=== PATIENT | male | born 1950 | race Caucasian/White ===

== ENCOUNTER 2021-03-31 10:13 | Observation (INO) ==
--- NOTE | 2021-03-10 14:18 | History & Physical Report ---
Date of Service March 10, 2021 date of surgery: 03/31/21 Procedure: Left Total Knee Arthroplasty Assessment & Plan (1) Arthritis of knee, left: Presents with chronic persistent left knee pain, has had a few courses of injections, most recently visco, underwent Euflexxa injection in the fall which lasted about 3 months. his x-rays show advanced DJD tricompartmental, bone on bone changes with osteophyte formation, joint space narrowing and subchondral sclerosis. we discussed options, he would like to proceed with a left total knee arthroplasty lovell and nephew non-block, he had his right TKA done in 2018 and has recovered well. The risks and benefits have been discussed including, but not limited to, risk of infection, nerve injury, stiffness, loss of motion, failure to improve, etc. Reasonable outcomes and options of treatment were discussed. An explanation of appropriate alternatives to the procedure that may be advantageous were discussed and their risks and benefits, as well as the risks and benefits of not proceeding with treatment. I offered to answer any additional inquiries concerning the treatment involved. All the patient's questions were answered. The patient is agreeable, understanding of the treatment plan and alternatives, and wishes to proceed with the treatment plan. History of Present Illness Chief Complaint: left knee pain Primary Care Provider: Gardenia Rodriguez Som farley is a 71 year old male that presents for pre op eval prior to a left total knee replacement at [facility]. He presents with chronic persistent left knee pain, has had a few courses of injections, most recently visco, underwent Euflexxa injection in the fall which lasted about 3 months. his x-rays show advanced DJD tricompartmental, bone on bone changes with osteophyte formation, joint space narrowing and subchondral sclerosis. we discussed options, he would like to proceed with a left total knee arthroplasty lovell and nephew non-block, he had his right TKA done in 2018 and has recovered well. he currently rates his pain as 6/10. has tried oral NSAIDs and Tylenol. Allergies Allergy/AdvReac Type Severity Reaction Status Date / Time Penicillins Allergy Intermediate HIVES Verified 03/03/21 15:09 Sulfa (Sulfonamide Allergy Intermediate "SULFA Verified 03/03/21 15:09 Antibiotics) DRUGS": HIVES adhesive Allergy surgical Verified 03/03/21 15:49 tape -- itching midazolam [From Versed] AdvReac confusion, Verified 03/03/21 15:49 memory loss x 2 wks, unable to follow direction Home Medications Medication Instructions Recorded Confirmed Type Fish Oil 1 cap PO QAM 03/03/21 03/03/21 History Vitamin D3 1 dose PO QAM 03/03/21 03/03/21 History aspirin [Aspir-81] 81 mg PO QAM 03/03/21 03/03/21 History atenolol 50 mg PO BID 03/03/21 03/03/21 History citalopram 20 mg PO QAM 03/03/21 03/03/21 History clopidogrel [Plavix] 75 mg PO Q OTHER DAY 03/03/21 03/03/21 History folic acid 1 dose PO QAM 03/03/21 03/03/21 History melatonin 1 dose PO HS 03/03/21 03/03/21 History multivitamin 1 tab PO QAM 03/03/21 03/03/21 History rosuvastatin [Crestor] 10 mg PO QPM 03/03/21 03/03/21 History tamsulosin 0.4 mg PO HS 03/03/21 03/03/21 History trazodone 100 mg PO HS 03/03/21 03/03/21 History Past Med/Surg History Medical History Anxiety DDD (degenerative disc disease) Depression History of anesthesia reaction Versed "scrambles his brain" per ; reports inability to follow instruction and memory loss x 2 weeks History of brachytherapy 2018 History of prostate cancer dx 2018; h/o brachytherapy History of TIA (transient ischemic attack) 2019 HLD (hyperlipidemia) HTN (hypertension) Internal carotid artery stent present Left (placed d/t scar tissue from L CEA) Osteoarthritis Pulmonary nodule dr. [facility] is monitoring Spinal stenosis Surgical History History of bronchoscopy 2018 with biopsy -- benign pulm nodule History of carotid endarterectomy Left 2019 History of carpal tunnel surgery of left wrist History of carpal tunnel surgery of right wrist History of colonoscopy History of hernia repair as a child History of lumbar fusion 2016 History of prostate biopsy History of right knee joint replacement 2016 History of right knee surgery 1981 History of surgery TCAR 08/2020 Family History Other No family history of adverse response to anesthesia Social History Smoking Status: Former smoker Smoking End Date: from age [age]; Second Hand Exposure: No; Do You Dip or Chew Tobacco: No; Tobacco Cessation Education Requested by Patient: No Hx Alcohol Use: Yes Alcohol type: beer, wine and hard liquor Hx Substance Use: No Preferred Language: Hebrew Communication Ability: Effective Map Colorer Required: No Beliefs That Will Affect Care: None Current Living Situation: Spouse Feels Safe at Home: Yes Assistive Devices: Glasses Review of Systems Review of Systems: All systems reviewed & are unremarkable except as noted in HPI & below Constitutional: no fever, no chills and no sweats Respiratory: no cough and no dyspnea Cardiovascular: no chest pain, no dyspnea and no orthopnea Gastrointestinal: no abdominal pain, no nausea and no vomiting Musculoskeletal: as per Subjective / HPI Physical Exam Physical Exam: HT: 5ft 8in WT: 108.86kg Constitutional: WD/WN, vitals as above no acute distress Respiratory: normal respiratory effort, lungs clear to auscultation no respiratory distress, no labored breathing and does not use accessory muscles Cardiovascular: RRR, no murmur, no edema Gastrointestinal (Abdomen): normal bowel sounds, soft, nontender, no hepatosplenomegaly Musculoskeletal: Knee: + knee abnormal to inspection (LEFT KNEE), + effusion (+1 effusion), + limited ROM of knee (ROM 0/3/110), + knee ROM with crepitation, + joint line tenderness (medial joint line) and + Boubacar's sign positive; no deformity, no skin erythema, no ecchymosis, no valgus laxity, no varus laxity, anterior drawer test negative, Tracy's sign negative and pivot shift test negative Results & Data Results & Data ([facility]) Diagnostic Findings Left Knee X-ray: left knee series confirm advanced degenerative changes to the left knee, greatest medial compartments and patellofemoral joint, showing joint space narrowing, osteophyte formation and subchondral sclerosis. no acute bony pathology noted.
--- NOTE | 2021-03-11 08:52 | PAT Medication Instructions ---
Medication Instructions Date of Service March 11, 2021 Home Medications Fish Oil 1 cap PO QAM Vitamin D3 1 dose PO QAM aspirin [Aspir-81] 81 mg PO QAM atenolol 50 mg PO BID citalopram 20 mg PO QAM clopidogrel [Plavix] 75 mg PO Q OTHER DAY folic acid 1 dose PO QAM melatonin 1 dose PO HS multivitamin 1 tab PO QAM rosuvastatin [Crestor] 10 mg PO QPM tamsulosin 0.4 mg PO HS trazodone 100 mg PO HS ASK your prescriber and surgeon clopidogrel [Plavix] 75 mg PO Q OTHER DAY (in order for spinal anesthesia, Plavix needs to be stopped 7 days before surgery. Please check if okay with doctor that prescribes this to you) STOP taking 2 weeks before surgery (or as soon as possible if surgery is within 2 weeks) Fish Oil 1 cap PO QAM DO NOT take the morning of surgery Vitamin D3 1 dose PO QAM folic acid 1 dose PO QAM multivitamin 1 tab PO QAM Take morning of surgery With a small sip of water, OTHERWISE NOTHING TO EAT OR DRINK AFTER MIDNIGHT: atenolol 50 mg PO BID citalopram 20 mg PO QAM Take evening before surgery atenolol 50 mg PO BID melatonin 1 dose PO HS rosuvastatin [Crestor] 10 mg PO QPM tamsulosin 0.4 mg PO HS trazodone 100 mg PO HS Other Notes If you have any questions please call us at [phone] or [phone] or [phone] or [phone]
--- NOTE | 2021-03-16 11:08 | Anesthesiology Consultation ---
Date of Service March 16, 2021 Assessment & Plan (1) Encounter for pre-operative examination: - COVID screening: Per assessment on 03/16: Travel screen- Returned from travel to [place] 03/11 (plane to [place], drove back)- Patient owns home in [place] (stayed at hotel on way back). Patient vaccinated. Wears PPE/avoids large crowds. Return from travel will be > 5 days prior to preop COVID testing. No further travel planned. No known COVID-19 positive contacts or current COVID-19 related symptoms. Surgeon arranging preop COVID testing. Awaiting results. - Spinal concerns: Patient reports that he had significant leg weakness x 1 year following spinal block (for LLE ligament repair) done remotely. Patient requesting general anesthesia if possible. Ultimate anesthetic choice to be made AM DOS. Chart Review Chart Review: Acceptable Risk for Surgery and Patient seen in Pre Admission Testing Teaching & Discussion Pre-Anesthesia Teaching/Discussion Notes: Instructed NPO after midnight before surgery,except medications with 15 cc of water. Medication instructions provided according to the PAT guidelines. History Surgery Operation Date: 03/31/21 07:15 Proposed Procedures p Left Total Knee Arthroplasty - Ton Huynh DO Height/Weight Height: 5 ft 8 in Weight: 110.3 kg Allergies Allergy/AdvReac Type Severity Reaction Status Date / Time Penicillins Allergy Intermediate Hives Verified 03/12/21 11:55 Sulfa (Sulfonamide Allergy Intermediate Hives Verified 03/12/21 11:55 Antibiotics) adhesive Allergy Surgical Verified 03/12/21 11:55 tape- itching midazolam [From Versed] AdvReac Confusion, Verified 03/12/21 11:55 memory loss(x2 weeks), unable to follow direction Medications Home Medications Medication Instructions Recorded Confirmed Last Taken Fish Oil 1 cap PO QAM 03/03/21 03/03/21 Unknown Vitamin D3 1 dose PO QAM 03/03/21 03/03/21 Unknown aspirin [Aspir-81] 81 mg PO QAM 03/03/21 03/03/21 Unknown atenolol 50 mg PO BID 03/03/21 03/03/21 Unknown citalopram 20 mg PO QAM 03/03/21 03/03/21 Unknown clopidogrel [Plavix] 75 mg PO Q OTHER DAY 03/03/21 03/03/21 Unknown folic acid 1 dose PO QAM 03/03/21 03/03/21 Unknown melatonin 1 dose PO HS 03/03/21 03/03/21 Unknown multivitamin 1 tab PO QAM 03/03/21 03/03/21 Unknown rosuvastatin [Crestor] 10 mg PO QPM 03/03/21 03/03/21 Unknown tamsulosin 0.4 mg PO HS 03/03/21 03/03/21 Unknown trazodone 100 mg PO HS 03/03/21 03/03/21 Unknown Past Medical History Medical History Anxiety Carotid artery disease s/p left CEA (2019) and subsequent stent/Transcarotid Artery Revascularization- on plavix DDD (degenerative disc disease) Depression History of prostate cancer dx 2018; h/o brachytherapy History of TIA (transient ischemic attack) 2019 HLD (hyperlipidemia) HTN (hypertension) Osteoarthritis Pulmonary nodule Under surveillance (Dr. Moon, [facility]) Spinal stenosis Exercise / Class Metabolic Activity II 4-5 Yardwork/Stairs/Walk up hill (one FS (no CP, no SOB)) Past Family History Family History Other No family history of adverse response to anesthesia Past Surgical History Surgical History History of brachytherapy 2018 History of bronchoscopy + biopsy (benign pulmonary nodule)- 2018 History of carotid endarterectomy Left 2019 History of carpal tunnel surgery of left wrist History of carpal tunnel surgery of right wrist History of colonoscopy History of hernia repair As child History of lumbar fusion 2016 History of prostate biopsy History of right knee joint replacement 2016 History of right knee surgery 1981 History of surgery TCAR (Transcarotid Artery Revascularization) 08/2020 History of surgery LLE ligament repair Internal carotid artery stent present Left (placed d/t scar tissue from L CEA) Past Anesthesia History No Family Hx of Anesthesia Complications and Other ( Versed "scrambles his brain" per ; reports inability to follow instruction and memory loss x 2 weeks) Patient reports that he had significant leg weakness x 1 year following spinal block (for LLE ligament repair) done remotely. History of PONV No Hx of PONV and No Hx of Motion Sickness Social History Smoking Status: Former smoker Do You Dip or Chew Tobacco: No Smoking End Date: From age [age] Hx Alcohol Use: Yes Alcohol type: beer, wine and hard liquor alcohol intake frequency: 3 or more drinks per day (3 beers a day (at the most)) Hx Substance Use: No substance use type: does not use Review of Systems Patient denies chest pain, shortness of breath, dyspnea on exertion, fever, chills, cough, wheezing, palpitations. Physical Exam Vital Signs VITALS BP 128/75 P 61 TEMP SP02 96%RA RESP 16 PHYSICAL Full cervical extension range of motion. Full TMJ range of motion. TMD 3.5 finger breaths Mallampati Score 2 Dentition: intact, + crowns Lungs: clear throughout to auscultation Cardiac: regular rate and rhythm, no murmurs noted Spine: normal Carotid arteries: negative bruit Extremities: no edema Lab Results Anesthesia Preop Results Results Anesthesia Widget: WBC 6.70 K/uL (4.8-10.8) 03/16/21 Hgb 14.7 g/dL (14.0-18.0) 03/16/21 Hct 41.8 % (42-52) L 03/16/21 Plt 176 K/uL (130-400) 03/16/21 Na 138 mmol/L (136-145) 03/16/21 K 4.2 mmol/L (3.5-5.1) 03/16/21 Cl 107 mmol/L (98-107) 03/16/21 CO2 25 mmol/L (21-32) 03/16/21 BUN 15 mg/dl (7-18) 03/16/21 Creat 0.66 mg/dl (0.6-1.4) 03/16/21 Glucose Level 136 mg/dl (70-99) H 03/16/21 PT 10.0 Seconds (9.0-12.0) 03/16/21 PTT 25.0 Seconds (21.0-31.0) 03/16/21 INR 1.0 (0.9-1.1) 03/16/21 HA1c 5.6 % (4.5-5.6) 03/16/21 Urine Color Dark Yellow 03/16/21 Urine Appearance Clear (Clear) 03/16/21 Urine pH 6.0 (4.5-7.5) 03/16/21 Urine Specific [place] 1.023 (1.000-1.030) 03/16/21 Urine Protein Negative (Negative) 03/16/21 Urine Glucose (UA) Negative (Negative) 03/16/21 Urine Ketones Negative (Negative) 03/16/21 Urine Blood Negative (Negative) 03/16/21 Urine Nitrite Negative (Negative) 03/16/21 Urine Bilirubin Negative (Negative) 03/16/21 Urine Urobilinogen Negative (Negative) 03/16/21 Urine Leukocyte Esterase Negative (Negative) 03/16/21 Blood Type A Positive 03/16/21 Antibody Screen NEGATIVE 03/16/21 Testing Electrocardiogram Date: 03/16/21 Normal sinus rhythm at 60 bpm. Normal ECG. T wave inversion less evident in i nferior leads when compared to 03/08/2016 per certified hyperbaric technician review-per visual review isolated nonspecific versus subtle T wave inversion isolated in lead III. Chest X-Ray Date: 07/27/20 Stable right upper lobe pulmonary nodule. Otherwise no acute disease seen at this time.
[~2021-03-31 10:13] MED LIST: ACETAMINOPHEN 500 MG TAB PO SCH; BUPIVACAINE 0.25% 30 ML VIAL ONE; BUPIVACAINE 0.5 % 5 MG/1 ML PF 10ML VIAL ONE; DEXAMETHASONE SOD INJ 4 MG/ML VIAL ONE; EPINEPHrine INJ 1 MG/ML AMP ONE; FAMOTIDINE 20 MG TAB PO SCH; GABAPENTIN 300 MG CAP PO SCH; LR 500ML BOLUS, THEN 15ML/HR IV SCH; METOCLOPRAMIDE HCL 10 MG TABLET PO SCH; ROPIVACAINE 0.5% HCL/PF 150 MG, BUPIVACAINE 0.75% MPF 20 ML, EPINEPHrine 30MG/30ML (OR ... INSTIL SCH; TRANEXAMIC ACID 1,000 MG **IV Intra-op IV SCH; TRANEXAMIC ACID 1,000 MG **IV Pre-op IV SCH; VANCOMYCIN HCL 1,750 MG in SODIUM CHLORIDE 0.9% 500 ML IV SCH; oxyCODONE HCL 10 MG TABCR (OxyCONTIN) PO SCH
--- NOTE | 2021-03-31 10:58 | History & Physical Bridge Note ---
Date of Service March 31, 2021 History & Physical Bridge Note I have examined the patient, reviewed the History & Physical and in the interval since the performance of the History & Physical I have noted the following changes of clinical significance: no changes noted
[2021-03-31] MEDS ORDERED: ePHEDrine sulfate 50 MG/ML SYR ONE (11:09)
[2021-03-31] MEDS ORDERED: PHENYLEPHRINE 100MCG/ML 5ML SYR ONE (11:09)
[2021-03-31] MEDS ORDERED: PROPOFOL IV EMULSION 10 MG/ML 20 ML VIAL IV ONE (11:09)
[2021-03-31] MEDS ORDERED: LIDOCAINE 2% 2 ML VIAL/AMP(20MG/ML) INFIL ONE (11:09)
[2021-03-31] MEDS ORDERED: fentaNYL citrate 100 MCG/2 ML VIAL ONE ×2 (11:10→13:57)
[2021-03-31] MEDS ORDERED: ORTHO JOINT ANESTHETIC ONE (12:43)
[2021-03-31] MEDS ORDERED: ONDANSETRON INJ 2 MG/ML 2 ML VIAL ONE (13:39)
[2021-03-31] MEDS ORDERED: DEXAMETHASONE SOD INJ 4 MG/ML VIAL ONE (13:43)
[2021-03-31] MEDS ORDERED: GLYCOPYRROLATE 0.2 MG/ML VIAL ONE (13:43)
--- NOTE | 2021-03-31 14:28 | Operative Report ---
Post Operative Report Pre & Post Diagnosis Operation Date: 03/31/21 12:15 Pre-Op Diagnosis: Osteoarthritis Left Knee Post-Op Diagnosis: Osteoarthritis Left Knee I identified the patient and participated in the time-out.: Yes Procedure Operation Date: 03/31/21 12:15 Actual Procedures p Left Total Knee Arthroplasty(Left) utilizing [employer] journey to nonblock size 7 femur 5 tibia 9 polythirty 2 oval patella- Ton Huynh DO Surgeon Ton Huynh DO Dye Reel Operator Christian DONIS Estimated Blood Loss 5 Findings Consistent with Post-Op Diagnosis Patient presents with severe end-stage tricompartmental degenerative joint disease [id number] varus alignment 10 degree flexion contracture with eburnated bone on bone marginal osteophyte subchondral cystic changes moderate to large effusion Specimens Bone and cartilage Drains Medium bore Hemovac Anesthesia Type MAC Spinal Regional Complications none Disposition Accompanied Patient To Recovery: No Disposition: Recovery Room Indications Patient presents with severe end-stage DJD left knee no response to conservative management patient presents for left total knee arthroplasty after failing conservative management clinic physical therapy anti-inflammatories relative rest activity modifications corticosteroid injections viscosupplementation Description of Procedure After proper prepping and draping of the left lower extremity anterior midline incision was made over the region of the extensor extensor mechanism after met iculous hemostasis was obtained and maintained in subcutaneous tissues a medial parapatellar incision was made The patella was subluxed lateralward the medial lateral gutter were cleaned from any hypertrophic synovitis and scar tissue of the distal femoral block was placed and the distal femoral osteotomy cut was made subsequently the chamfers anterior and posterior osteotomy cuts were made utilizing the 4-in-1 block the tibia was subsequently subluxed anteriorward medial and ateral meniscal remnants were excised in their entirety remnants of the anterior and posterior cruciate ligaments were excised in their entirety excellent exposure of the proximal tibia was obtained the tibial osteotomy guide was placed on the proximal tibial osteotomy cut was made once again the knee was irrigated with copious amounts of sterile saline solution the patella was subsequently everted lateralward thickened scar tissue around the patella was removed the patella was subsequently cut utilizing a freehand technique and was drilled prepared for final preparation and placement of patella socially flexion-extension gaps were checked and the equal and symmetric trials were placed to the appropriate femoral and tibial trials with poly-spacer being placed for equal flexion and extension gaps and full range of motion including extension to 0 and flexion to 140 the trial components after having been taken to recovery range of motion was subsequently removed meticulous hemostasis was obtained and maintained subsequently a knee block injection of joint cocktail including ropivacaine 0.5% 150 mg. Bupivacaine 0.5% epinephrine 1-200,030 mL's toradol 30 mg dexamethasone 4 mg ketamine 10 mg clonidine 100 micrograms normal saline solution 30 mg was infiltrated into the soft tissues of the posterior k nee medial lateral gutters and periosteal synovium special attention was paid to protect neurovascular structures at all times subsequently trial components having been removed the knee was irrigated with sterile saline solution. debris was removed the proximal tibia was subsequently prepared and was made ready for the placement of the tibial component tibial component was also cemented and tamped into position the femoral component was subsequently placed and cemented in the position the patellar component was subsequently cemented in position because hemostasis once again obtained and maintained wound having been thoroughly irrigated with debridement and debridement lavage was performed as well as a medial parapatellar incision closed with #1 Vicryl in interrupted fashion subcutaneous was closed with #2 Vicryl skin was closed with skin clips. PA-C was necessary for prepping and drapping as well as wound closure of deep fascia Sub cutaneous tissue and skin and was necessary for the case. A sterile compressive dressing was placed patient was taken to recovery in stable condition of report dictated by Lino I attest to the content of the Intraoperative Record and any orders documented therein. Any exceptions are noted below. I attest to the content of the Intraoperative Record and any orders documented therein. Any exceptions are noted below.
[2021-03-31] MEDS ORDERED: ATROPINE SULFATE 0.1 MG/ML 10ML SYR IV PRN (15:00)
[2021-03-31] MEDS ORDERED: PROMETHAZINE HCL 6.25 MG in SODIUM CHLORIDE 0.9% 50 ML IV PRN (15:00)
[2021-03-31] MEDS ORDERED: ePHEDrine sulfate 50 MG/ML AMP IV PRN (15:00)
[2021-03-31] MEDS ORDERED: fentaNYL citrate 100 MCG/2 ML VIAL IV PRN (15:00)
[2021-03-31] MEDS ORDERED: ONDANSETRON INJ 2 MG/ML 2 ML VIAL IV PRN ×2 (15:00→17:43)
--- NOTE | 2021-03-31 15:45 | XRay Report ---
XR knee RT 1 or 2V routine CLINICAL HISTORY: Surgical Post Op COMPARISON: None. DISCUSSION: There are postsurgical changes of a total left knee arthroplasty and patellar resurfacing . The femoral and tibial components appear well seated. There are overlying skin navin and surgical drains. There is gas present within the soft tissues consistent with recent surgery. IMPRESSION: Postsurgical changes of a total left knee arthroplasty. ACT 112: Negative or not required by law. Electronically signed by: Kvng Allen M.D. 03/31/2021 3:44 PM
--- NOTE | 2021-03-31 15:48 | Anesthesiology Progress Note ---
Date of Service March 31, 2021 Anesthesia Post Procedure Vital Signs Vital Signs: Temp Pulse Pulse Resp BP Pulse Ox 03/31/21 15:40 36.2 C L 63 16 139/83 94 03/31/21 15:30 64 14 154/91 H 98 03/31/21 15:20 65 14 125/86 97 03/31/21 15:13 36.7 C 73 14 152/72 H 96 03/31/21 12:05 36.6 C 55 L 20 144/73 H 96 03/31/21 10:35 36.8 C 60 18 168/85 H 96 Transfer of Care Handoff Completed per policy Notes Mental Status: alert / awake / arousable Patient Amnestic to Procedure: Yes Nausea / Vomiting: adequately controlled Pain: adequately controlled Airway Patency, RR, SpO2: stable & adequate BP & HR: stable & adequate Hydration State: stable & adequate Anesthetic Complications: no major complications apparent
[2021-03-31] MEDS ORDERED: MAGNESIUM HYDROXIDE SUSP 30 ML UDC PO PRN (17:43)
[2021-03-31] MEDS ORDERED: HYDROmorphone INJ 0.5 MG/0.5 ML SYR IV PRN (17:43)
[2021-03-31] MEDS ORDERED: VANCOMYCIN CONSULT ACTIVE PRN (17:43)
[2021-03-31] MEDS ORDERED: bisacodyL 10 MG SUPP PR PRN (17:43)
[2021-03-31] MEDS ORDERED: NALOXONE HCL 0.4 MG/1 ML VIAL/CARP IV PRN (17:43)
[2021-03-31] MEDS: SODIUM CHLORIDE 0.9% 1000ML 1,000 ML IV SCH (18:50)
[2021-03-31] MEDS: TAMSULOSIN HCL 0.4 MG CAP PO SCH (21:35)
[2021-03-31] MEDS: ASPIRIN 81 MG ECTAB PO SCH (21:35)
[2021-03-31] MEDS: ACETAMINOPHEN 500 MG TAB PO SCH (21:35)
[2021-03-31] MEDS: ROSUVASTATIN CALCIUM 10 MG TAB PO SCH (21:35)
[2021-03-31] MEDS: SENNA 8.6 MG TAB PO SCH (21:35)
[2021-03-31] MEDS: DOCUSATE SODIUM 100 MG CAP PO SCH (21:35)
[2021-03-31] MEDS: traZODone HCL 100 MG TAB PO SCH (21:35)
[2021-03-31] MEDS: ATENOLOL 50 MG TABLET PO SCH (21:36)
[2021-03-31] MEDS: FERROUS GLUCONATE 324 MG TAB PO SCH (21:36)
[2021-04-01] MEDS ORDERED: VANCOMYCIN HCL 1,750 MG in SODIUM CHLORIDE 0.9% 500 ML IV SCH
[2021-04-01] MEDS: ACETAMINOPHEN 500 MG TAB PO SCH ×3 (05:53→21:23)
[2021-04-01] MEDS: SODIUM CHLORIDE 0.9% 1000ML 1,000 ML IV SCH (05:54)
[2021-04-01 08:45] LABS: Hematocrit (blood only) 35.1 % (42-52); Hemoglobin 12.4 g/dL (14.0-18.0); Mean Corpuscular Hgb Conc 35.3 g/dL (32-36); Mean Corpuscular Volume 90.5 fL (80-100); Mean Platelet Volume 9.8 fL (7.4-10.4); Platelet Count 187 K/uL (130-400); RDW Coefficient of Variation 12.2 % (11.5-14.5); RDW Standard Deviation 40.2 fL (36.4-46.3); Red Blood Count 3.88 M/uL (4.7-6.1); White Blood Count 14.21 K/uL (4.8-10.8)
[2021-04-01] MEDS ORDERED: CLOPIDOGREL BISULFATE 75 MG TAB PO SCH (09:00)
[2021-04-01 09:11] LABS: BUN Creatinine Ratio 19.1 (10-20); Calcium 8.3 mg/dl (8.5-10.1); Creatinine Clr Calc Pharmacy 128.6 ml/min; Est GFR (Non-African American) 99.2 ml/min; Potassium 3.7 mmol/L (3.5-5.1)
[2021-04-01] MEDS: DOCUSATE SODIUM 100 MG CAP PO SCH ×2 (09:29→21:22)
[2021-04-01] MEDS: MULTIVITAMIN TAB PO SCH (09:29)
[2021-04-01] MEDS: ATENOLOL 50 MG TABLET PO SCH ×2 (09:30→21:23)
[2021-04-01] MEDS: ASPIRIN 81 MG ECTAB PO SCH (09:30)
[2021-04-01] MEDS: FERROUS GLUCONATE 324 MG TAB PO SCH ×2 (09:30→17:50)
[2021-04-01] MEDS: CITALOPRAM 20 MG TAB PO SCH (09:30)
--- NOTE | 2021-04-01 10:55 | Orthopedic Progress Note ---
Date of Service April 01, 2021 Assessment & Plan (1) Arthritis of knee, left: Plan: Postop day 1 status post left total knee arthroplasty PT/OT protocols. Weightbearing as tolerated. DVT prophylaxis-Xarelto 10 mg p.o. daily, SCDs, THEODORE carlton. Noted that patient is no longer takes Plavix. Family history of DVT and patient history of prostate cancer 1/2 years prior. Pain management as written. DC planning-plan for outpatient PT upon discharge. Continue to follow Hemovac drainage. Admission and Anticipated Discharge Date Admission Date: March 31, 2021 Subjective Postop day 1 Patient sitting up in the chair at the bedside. Having a little bit of discomfort this morning but tolerating well. Denies shortness of breath, chest pain, lightheadedness. Physical Exam Physical Exam: Dressings are intact. He has a small amount of drainage that h as seeped through the Steven wrap distally but is not soaking it. Calves are soft nontender. Neurovascular intact. Toes are mobile. Hemovac drainage was 250 mL from previous shift. Results & Data ([facility]) Vital Signs (Past 12 Hours) Vital Signs Temp Pulse Resp BP BP Pulse Ox 04/01/21 07:21 36.6 C 57 L 16 143/73 H 96 04/01/21 03:10 36.8 C 54 L 18 184/80 H 135/71 95 03/31/21 22:54 36.5 C 52 L 18 164/74 H 94 Laboratory Results 04/01/21 04/01/21 03/31/21 Range/Units 08:01 08:01 10:26 WBC 14.21 H (4.8-10.8) K/uL RBC 3.88 L (4.7-6.1) M/uL Hgb 12.4 L (14.0-18.0) g/dL Hct 35.1 L (42-52) % MCV 90.5 (80-100) fL MCH 32.0 (25-34) pg MCHC 35.3 (32-36) g/dL RDW Std Deviation 40.2 (36.4-46.3) fL RDW Coeff of Mulu 12.2 (11.5-14.5) % Plt Count 187 (130-400) K/uL MPV 9.8 (7.4-10.4) fL Sodium 140 (136-145) mmol/L Potassium 3.7 (3.5-5.1) mmol/L Chloride 110 H (98-107) mmol/L Carbon Dioxide 22 (21-32) mmol/L Anion Gap 8.0 (3-11) BUN 12 (7-18) mg/dl Creatinine 0.64 (0.6-1.4) mg/dl Est Cr Clr Drug Dosing 128.6 ml/min Est GFR ( Amer) 115.0 ml/min Est GFR (Non-Af Amer) 99.2 ml/min BUN/Creatinine Ratio 19.1 (10-20) Glucose 123 H (70-99) mg/dl Calcium 8.3 L (8.5-10.1) mg/dl COVID-19 Eval Order SARS-CoV-2, RNA, NAAT NEGATIVE (NEGATIVE) 03/31/21 Range/Units 10:26 WBC (4.8-10.8) K/uL RBC (4.7-6.1) M/uL Hgb (14.0-18.0) g/dL Hct (42-52) % MCV (80-100) fL MCH (25-34) pg MCHC (32-36) g/dL RDW Std Deviation (36.4-46.3) fL RDW Coeff of Mulu (11.5-14.5) % Plt Count (130-400) K/uL MPV (7.4-10.4) fL Sodium (136-145) mmol/L Potassium (3.5-5.1) mmol/L Chloride (98-107) mmol/L Carbon Dioxide (21-32) mmol/L Anion Gap (3-11) BUN (7-18) mg/dl Creatinine (0.6-1.4) mg/dl Est Cr Clr Drug Dosing ml/min Est GFR ( Amer) ml/min Est GFR (Non-Af Amer) ml/min BUN/Creatinine Ratio (10-20) Glucose (70-99) mg/dl Calcium (8.5-10.1) mg/dl COVID-19 Eval [facility] SARS-[facility]-2, RNA, NAAT (NEGATIVE)
[2021-04-01] MEDS: RIVAROXABAN 10 MG TABLET PO SCH (12:13)
--- NOTE | 2021-04-01 16:40 | Hospitalist Consultation ---
Date of Consultation April 01, 2021 Assessment & Plan (1) S/P TKR (total knee replacement): * POD #1 * Recommend adequate postoperative pain managementper primary, PT/OT, incentive spirometry, and DVT prophylaxis * DVT prophylaxis discussed with primary team. Would recommend Xarelto given personal history of prostate CA and family history of DVT in the past. Drug, dose, duration are at the discretion of primary team. Would encourage 14 days (2) Leukocytosis: * Presumed leukemoid reaction given recent surgery. No report of steroid given intraoperatively. Patient does not have any S/S infection (afebrile, no cough or respiratory symptoms, no GI/ symptoms) * Encouraged incentive spirometry (3) Prostate cancer: * S/p radioactive seed implantation (4) Family history of DVT: * (5) Carotid stenosis: * Follows vascular surgeon and did receive preop clearance * Per patient, no longer taking Plavix (6) Depression: * Continue Celexa and trazodone as prior to hospitalization (7) HTN (hypertension): * Resume atenolol as prior to hospitalization * At this point, patient offers no medical contraindications to proceed with discharge once he is meeting his therapy goals including step training * Will sign off on this patient from a medical standpoint; however, do not hesitate to reconsult should a problem arise * Thank you for allowing me to participate in his care Supervising Physician Co-Signing Physician Notes Patient reviewed with Jazmin DONIS. I agree with their exam findings, review of systems, assessment and plan. I personally reviewed the lab work and imaging as well. patient doing well after TKA recommend Xarelot for DVT prophylaxis pain control and d/c planning per orthopedics we will sign off for time being History of Present Illness Reason for Consultation: Medical management Requesting Physician: Dr. Huynh Attending Physician: Ton Huynh DO History of Present Illness Mr. 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 He was seen in consultation for medical management following AN elective left TKA. Today is POD #1. He had an uneventful perioperative course. Estimated blood loss was 5 cc. He had spinal for means of anesthesia. No blood pressure concerns postoperatively. Today, patient denies fevers, chills, chest pain, shortness of breath, abdominal pain, nausea or vomiting. Pain is adequately controlled with pain medication. Tolerating pain medication without ill effects. Hemovac with bloody drainage. Goal is for discharge to home. Has yet to be seen by PT/OT. No personal history of DVT/PE; however, mother had history of recurrent DVT. Patient lives in a two-story home with his . All accommodations are on the first story. Was seen by his vascular surgeon 1 month ago for preoperative clearance. Reports he had a carotid endarterectomy in 2019. Subsequently, required revascularization in 2019. Has been on Plavix which has since been discontinued approximately [address] Burroughs at [facility]. Allergies Allergy/AdvReac Type Severity Reaction Status Date / Time Penicillins Allergy Intermediate Hives Verified 03/31/21 10:48 Sulfa (Sulfonamide Allergy Intermediate Hives Verified 03/31/21 10:48 Antibiotics) adhesive Allergy Surgical Verified 03/31/21 10:48 tape- itching midazolam [From Versed] AdvReac Confusion, Verified 03/31/21 10:48 memory loss(x2 weeks), unable to follow direction Home Medications Medication Instructions Recorded Confirmed Type Fish Oil 1 cap PO QAM 03/03/21 03/31/21 History Vitamin D3 1 dose PO QAM 03/03/21 03/31/21 History aspirin 81 mg tablet,delayed 81 mg PO QAM 03/03/21 03/31/21 History release atenolol 50 mg tablet 50 mg PO BID 03/03/21 03/31/21 History citalopram 40 mg tablet 20 mg PO QAM 03/03/21 03/31/21 History clopidogrel 75 mg tablet (Plavix) 75 mg PO Q OTHER DAY 03/03/21 03/31/21 History folic acid 1 dose PO QAM 03/03/21 03/31/21 History melatonin 1 dose PO HS 03/03/21 03/31/21 History multivitamin 1 tab PO QAM 03/03/21 03/31/21 History rosuvastatin 10 mg tablet (Crestor) 10 mg PO QPM 03/03/21 03/31/21 History tamsulosin 0.4 mg capsule 0.4 mg PO HS 03/03/21 03/31/21 History trazodone 100 mg tablet 100 mg PO HS 03/03/21 03/31/21 History Patient History Medical History (Updated 04/01/21 @ 16:38 by Jazmin Radford PA-C) Anxiety Carotid artery disease s/p left CEA (2018) and subsequent stent/Transcarotid Artery Revascularization- on plavix DDD (degenerative disc disease) Depression History of prostate cancer dx 2018; h/o brachytherapy History of TIA (transient ischemic attack) 2019 HLD (hyperlipidemia) HTN (hypertension) Osteoarthritis Pulmonary nodule Under surveillance (Dr. Moon, [facility]) Spinal stenosis Surgical History History of brachytherapy 2018 History of bronchoscopy + biopsy (benign pulmonary nodule)- 2018 History of carotid endarterectomy Left 2019 History of carpal tunnel surgery of left wrist History of carpal tunnel surgery of right wrist History of colonoscopy History of hernia repair As child History of lumbar fusion 2016 History of prostate biopsy History of right knee joint replacement 2016 History of right knee surgery 1981 History of surgery TCAR (Transcarotid Artery Revascularization) 08/2020 History of surgery LLE ligament repair Internal carotid artery stent present Left (placed d/t scar tissue from L CEA) Family History Other No family history of adverse response to anesthesia Social History Smoking Status: Former smoker Smoking End Date: From age [age]; Second Hand Exposure: No; Do You Dip or Chew Tobacco: No; Tobacco Cessation Education Requested by Patient: No Hx Alcohol Use: Yes Alcohol type: beer, wine and hard liquor Hx Substance Use: No Preferred Language: Marshallese Communication Ability: Effective Knitter Helper Required: No Beliefs That Will Affect Care: None marital status: Current Living Situation: Spouse Feels Safe at Home: Yes Assistive Devices: Walker Review of Systems Review of Systems: All systems reviewed and are unremarkable except as noted in HPI and below Denies fevers, chills, headache, nasal congestion, sore throat, cough, chest pain, shortness of breath, abdominal pain, nausea, vomiting, dysuria, hematuria, frequency, skin lesions or rashes. Physical Exam Physical Exam: General: Resting comfortably in his bedside chair. NAD. Neck: No JVD. Negative hepatojugular reflex Cardiac: RRR 2/6 HAMLET Lungs: CTA without W/R/R Abdomen: Normoactive X4. Soft and nontender in all quadrants. Extremities: Steven wrap to left lower extremity. Blood noted to be seeping through into the Steven bandage (Ortho aware). Hemovac indwelling. No calf tenderness. Negative Homans' sign. Peripheral pulses are intact and symmetrical bilaterally. Capillary refill +2. Neuro: A&O X4 cranial nerves II through XII are grossly intact no focal neuro deficits Skin: No obvious skin lesions or rashes Results & Data Results & Data ([facility]) Vital Signs (Past 12 Hours) Vital Signs Temp Pulse Resp BP BP Pulse Ox 04/01/21 15:15 37.0 C 61 16 121/66 95 04/01/21 07:21 36.6 C 57 L 16 143/73 H 96 Laboratory Results 04/01/21 08:01 04/01/21 08:01 PG Care Time/CCT Total # of Minutes Spent Total Time Spent with Patient: Total time spent is greater than 50% in coordination of care (as documented) at patient's floor/unit and/or counseling patient: [place] [address] Inpt Consult Level 5 Patient Type New Medical Decision Making Moderate Complexity Diagnoses S/P TKR (total knee replacement) Z96.659 Leukocytosis D72.829 Prostate cancer C61 Family history of DVT Z82.49 Carotid stenosis I65.29 Depression F32.9 HTN (hypertension) I10 Time Spent (min) 60
[2021-04-01] MEDS: TAMSULOSIN HCL 0.4 MG CAP PO SCH (21:23)
[2021-04-01] MEDS: oxyCODONE HCL IR 5 MG TAB (IMMEDIATE RELEASE) PO PRN (21:23)
[2021-04-01] MEDS: traZODone HCL 100 MG TAB PO SCH (21:23)
[2021-04-01] MEDS: ROSUVASTATIN CALCIUM 10 MG TAB PO SCH (21:23)
[2021-04-01] MEDS: SENNA 8.6 MG TAB PO SCH (21:23)
[2021-04-02] MEDS: ACETAMINOPHEN 500 MG TAB PO SCH ×2 (05:56→13:18)
[2021-04-02 06:44] LABS: Hematocrit (blood only) 31.2 % (42-52); Hemoglobin 10.9 g/dL (14.0-18.0)
[2021-04-02] MEDS: oxyCODONE HCL IR 5 MG TAB (IMMEDIATE RELEASE) PO PRN ×2 (07:39→12:01)
[2021-04-02] MEDS: FERROUS GLUCONATE 324 MG TAB PO SCH (07:40)
--- NOTE | 2021-04-02 08:34 | Orthopedic Progress Note ---
Date of Service April 02, 2021 Assessment & Plan (1) Arthritis of knee, left: Plan: Postop day 2 status post left total knee arthroplasty DC dressings and drains today PT/OT protocols. Weightbearing as tolerated. DVT prophylaxis-Xarelto 10 mg p.o. daily, SCDs, THEODORE calrton. Noted that patient is no longer takes Plavix. Family history of DVT and patient history of prostate cancer 1/2 years prior. Pain management as written. DC planning-plan for outpatient PT upon discharge. Plan for discharge to home today. Admission and Anticipated Discharge Date Admission Date: March 31, 2021 Subjective Postop day 2 Patient sitting up in bed. Awake and alert. No complaints this morning. Pain is controlled at rest. Denies shortness of breath, chest pain, lightheadedness. He is hoping to go home today. Physical Exam Physical Exam: Original dressings are still on. He did not have much more in the way of distal drainage noted on the dressing. Calves are soft nontender. Neurovascular intact. Toes are mobile. Hemovac has minimal drainage. Results & Data ([facility]) Vital Signs (Past 12 Hours) Vital Signs Temp Pulse Resp BP Pulse Ox 04/02/21 06:51 36.6 C 54 L 16 150/60 H 95 04/01/21 22:58 36.8 C 61 18 128/65 96 04/01/21 21:15 61 176/74 H Laboratory Results 04/02/21 04/01/21 04/01/21 Range/Units 06:13 08:01 08:01 WBC 14.21 H (4.8-10.8) K/uL RBC 3.88 L (4.7-6.1) M/uL Hgb 10.9 L 12.4 L (14.0-18.0) g/dL Hct 31.2 L 35.1 L (42-52) % MCV 90.5 (80-100) fL MCH 32.0 (25-34) pg MCHC 35.3 (32-36) g/dL RDW Std Deviation 40.2 (36.4-46.3) fL RDW Coeff of Mulu 12.2 (11.5-14.5) % Plt Count 187 (130-400) K/uL MPV 9.8 (7.4-10.4) fL Sodium 140 (136-145) mmol/L Potassium 3.7 (3.5-5.1) mmol/L Chloride 110 H (98-107) mmol/L Carbon Dioxide 22 (21-32) mmol/L Anion Gap 8.0 (3-11) BUN 12 (7-18) mg/dl Creatinine 0.64 (0.6-1.4) mg/dl Est Cr Clr Drug Dosing 128.6 ml/min Est GFR ( Amer) 115.0 ml/min Est GFR (Non-Af Amer) 99.2 ml/min BUN/Creatinine Ratio 19.1 (10-20) Glucose 123 H (70-99) mg/dl Calcium 8.3 L (8.5-10.1) mg/dl
[2021-04-02] MEDS: ATENOLOL 50 MG TABLET PO SCH (08:45)
[2021-04-02] MEDS: DOCUSATE SODIUM 100 MG CAP PO SCH (08:45)
[2021-04-02] MEDS: CITALOPRAM 20 MG TAB PO SCH (08:45)
[2021-04-02] MEDS: MULTIVITAMIN TAB PO SCH (08:45)
[2021-04-02] MEDS: RIVAROXABAN 10 MG TABLET PO SCH (08:46)
--- NOTE | 2021-04-04 09:37 | Discharge Summary ---
Date of Service April 04, 2021 Admission HPI Per Admitting Provider martine is a 71 year old male that presents for pre op eval prior to a left total knee replacement at [facility]. He presents with chronic persistent left knee pain, has had a few courses of injections, most recently visco, underwent Euflexxa injection in the fall which lasted about 3 months. his x-rays show advanced DJD tricompartmental, bone on bone changes with osteophyte formation, joint space narrowing and subchondral sclerosis. we discussed options, he would like to proceed with a left total knee arthroplasty lovell and nephmynor non-block, he had his right TKA done in 2018 and has recovered well. he currently rates his pain as 6/10. has tried oral NSAIDs and Tylenol. Admission Exam Per Admitting Provider Physical Exam: HT: 5ft 8in WT: 108.86kg Constitutional: WD/WN, vitals as above no acute distress Respiratory: normal respiratory effort, lungs clear to auscultation no respiratory distress, no labored breathing and does not use accessory muscles Cardiovascular: RRR, no murmur, no edema Gastrointestinal (Abdomen): normal bowel sounds, soft, nontender, no hepatosplenomegaly Musculoskeletal: Knee: + knee abnormal to inspection (LEFT KNEE), + effusion (+1 effusion), + limited ROM of knee (ROM 0/3/110), + knee ROM with crepitation, + joint line tenderness (medial joint line) and + Boubacar's sign positive; no deformity, no skin erythema, no ecchymosis, no valgus laxity, no varus laxity, anterior drawer test negative, Tracy's sign negative and pivot shift test negative Principal Diagnosis Left Knee Osteoarthritis Discharge Data Allergies Allergy/AdvReac Type Severity Reaction Status Date / Time Penicillins Allergy Intermediate Hives Verified 03/31/21 10:48 Sulfa (Sulfonamide Allergy Intermediate Hives Verified 03/31/21 10:48 Antibiotics) adhesive Allergy Surgical Verified 03/31/21 10:48 tape- itching midazolam [From Versed] AdvReac Confusion, Verified 03/31/21 10:48 memory loss(x2 weeks), unable to follow direction Consultations 03/26/21 14:49 Consult Hospitalist Routine Procedures Performed Operation Date: 03/31/21 12:15 Actual Procedures p Left Total Knee Arthroplasty(Left) - Ton Huynh DO Ordered Studies 03/31/21 05:00 US - OR guided needle placemen Routine Hospital Course (1) Arthritis of knee, left: Date of Service April 01, 2021 Assessment & Plan (1) Arthritis of knee, left: Plan: Postop day 1 status post left total knee arthroplasty PT/OT protocols. Weightbearing as tolerated. DVT prophylaxis-Xarelto 10 mg p.o. daily, SCDs, THEODORE carlton. Noted that patient is no longer takes Plavix. Family history of DVT and patient history of prostate cancer 1/2 years prior. Pain management as written. DC planning-plan for outpatient PT upon discharge. Continue to follow Hemovac drainage. Admission and Anticipated Discharge Date Admission Date: March 31, 2021 Subjective Postop day 1 Patient sitting up in the chair at the bedside. Having a little bit of discomfort this morning but tolerating well. Denies shortness of breath, chest pain, lightheadedness. Physical Exam Physical Exam: Dressings are intact. He has a small amount of drainage that has seeped through the Steven wrap distally but is not soaking it. Calves are soft nontender. Neurovascular intact. Toes are mobile. Hemovac drainage was 250 mL from previous shift. Results & Data ([facility]) Vital Signs (Past 12 Hours) Vital Signs Temp Pulse Resp BP BP Pulse Ox 04/01/21 07:21 36.6 C 57 L 16 143/73 H 96 04/01/21 03:10 36.8 C 54 L 18 184/80 H 135/71 95 03/31/21 22:54 36.5 C 52 L 18 164/74 H 94 Laboratory Results 04/01/21 04/01/21 03/31/21 Range/Units 08:01 08:01 10:26 WBC 14.21 H (4.8-10.8) K/uL RBC 3.88 L (4.7-6.1) M/uL Hgb 12.4 L (14.0-18.0) g/dL Hct 35.1 L (42-52) % MCV 90.5 (80-100) fL MCH 32.0 (25-34) pg MCHC 35.3 (32-36) g/dL RDW Std Deviation 40.2 (36.4-46.3) fL RDW Coeff of Mulu 12.2 (11.5-14.5) % Plt Count 187 (130-400) K/uL MPV 9.8 (7.4-10.4) fL Sodium 140 (136-145) mmol/L Potassium 3.7 (3.5-5.1) mmol/L Chloride 110 H (98-107) mmol/L Carbon Dioxide 22 (21-32) mmol/L Anion Gap 8.0 (3-11) BUN 12 (7-18) mg/dl Creatinine 0.64 (0.6-1.4) mg/dl Est Cr Clr Drug Dosing 128.6 ml/min Est GFR ( Amer) 115.0 ml/min Est GFR (Non-Af Amer) 99.2 ml/min BUN/Creatinine Ratio 19.1 (10-20) Glucose 123 H (70-99) mg/dl Calcium 8.3 L (8.5-10.1) mg/dl COVID-19 Eval Order SARS-CoV-2, RNA, NAAT NEGATIVE (NEGATIVE) Date of Service April 02, 2021 Assessment & Plan (1) Arthritis of knee, left: Plan: Postop day 2 status post left total knee arthroplasty DC dressings and drains today PT/OT protocols. Weightbearing as tolerated. DVT prophylaxis-Xarelto 10 mg p.o. daily, SCDs, THEODORE carlton. Noted that patient is no longer takes Plavix. Family history of DVT and patient history of prostate cancer 1/2 years prior. Pain management as written. DC planning-plan for outpatient PT upon discharge. Plan for discharge to home today. Admission and Anticipated Discharge Date Admission Date: March 31, 2021 Subjective Postop day 2 Patient sitting up in bed. Awake and alert. No complaints this morning. Pain is controlled at rest. Denies shortness of breath, chest pain, lightheadedness. He is hoping to go home today. Physical Exam Physical Exam: Original dressings are still on. He did not have much more in the way of distal drainage noted on the dressing. Calves are soft nontender. Neurovascular intact. Toes are mobile. Hemovac has minimal drainage. Results & Data ([facility]) Vital Signs (Past 12 Hours) Vital Signs Temp Pulse Resp BP Pulse Ox 04/02/21 06:51 36.6 C 54 L 16 150/60 H 95 04/01/21 22:58 36.8 C 61 18 128/65 96 04/01/21 21:15 61 176/74 H Laboratory Results 04/02/21 04/01/21 04/01/21 Range/Units 06:13 08:01 08:01 WBC 14.21 H (4.8-10.8) K/uL RBC 3.88 L (4.7-6.1) M/uL Hgb 10.9 L 12.4 L (14.0-18.0) g/dL Hct 31.2 L 35.1 L (42-52) % Total Time Total Time Spent Total Time Spent (In Minutes): 5 Discharge Plan Discharge Items Patient Disposition: Home - Self-Care Reason For Visit: Osteoarthritis Left Knee Discharge Diagnosis: Osteoarthritis Left Knee Activity: Per Instructions section Weightbearing: Left weightbearing Weightbearing Comment: as tolerated with walker Non-emergency contact: Surgeon Call non-emergency contact if: you have any medication questions and your pain is not controlled Follow-up/Referrals: Gardenia Kearns D.OMona [Primary Care Provider] - Diet: Regular Addtl Attending Provider Instructions: ACTIVITY RECOMMENDATIONS: SELF CARE INSTRUCTIONS AFTER TOTAL KNEE REPLACEMENT A. You may need to continue a physical therapy program after discharge from the hospital. There are several options available to you. Your doctor will assist you in selecting the best one for you. 1. An out-patient facility 2 to 3 times a week for therapy or home therapy. 2. Continue working on all exercises taught to you in the hospital. Your goals should be to increase bending of your knee to 90 degrees and beyond and to fully straighten your knee. B. You may progress at your own pace from walking with a walker or crutches to a cane; then to no assistive devices. C. Make walking a part of your daily routine. Be up as much as comfortable with rest periods throughout the day. Rest with leg elevation is very important. Use the ice wrap frequently for the first 3-4 weeks. D. There are no restrictions on activities. You may ride in a car, shop, participate in sales developer and all social activities. E. Wear the long elastic stockings (THEODORE hose) 20 hours a day for 2 weeks after surgery. They can be removed several times a day for laundering and for a bath. F. You may shower, no tub baths until cleared by your doctor. SPECIAL CARE INSTRUCTIONS: VERY IMPORTANT TO READ AND REVIEW A. There are a few signs you need to watch for after you are home. [facility] if you notice any of the followin. Increased severe knee pain. Some pain is expected especially when you exercise. 2. Increased swelling in your leg or knee; pain or swelling of the calf muscle in either lower leg. 3. Any fluid drainage from the incision. 4. Shortness of breath or chest pain. B. Please call [facility] at if you have any concerns or questions about your operation or recovery. The doctor or his nurse will return your call promptly. C. You must take antibiotics before dental work, bladder, bowel or other surgery. Your doctor will provide you with a permanent care to carry describing this precaution. IMPORTANT: * REMEMBER TO TAKE ASPIRIN, 81 MG, TWICE DAILY FOR 4 WEEKS UNLESS OTHERWISE DIRECTED. THIS IS YOUR BLOOD THINNER. CONTINUE YOUR PLAVIX WELL. * HIGH RISK PATIENTS MAY BE PRESCRIBED A STRONGER BLOOD THINNER. THIS WILL BE PROVIDED AT DISCHARGE. * CALL IF INCREASED PAIN, REDNESS, DRAINAGE OR FEVER GREATER THAT 101. * WEAR THEODORE HOSE 20 HOURS PER DAY FOR 2 WEEKS. * KEEP A DRESSING ON THE KNEE FOR AT LEAST THE FIRST WEEK, ESPECIALLY IF IT CONTINUES TO HAVE DRAINAGE. YOU CAN USE 4X4 GAUZE AND A 4" STEVEN WRAP TO KEEP THE DRESSING IN PLACE. PLEASE CALL THE OFFICE WITH ANY QUESTIONS ABOUT YOUR WOUND. . FOLLOW UP VISIT: If appointment is not already scheduled: Please call [facility] to make a follow-up appointment for 2 weeks after your surgery at . Stand-Alone Forms: My [employer], Smoking Cessation Medications and DC Order Prescriptions: New acetaminophen [Tylenol Extra Strength] 500 mg Tablet 1,000 mg PO Q8 14 Days Qty: 84 RF: 0 doxycycline hyclate 100 mg capsule 100 mg PO BID 14 Days Qty: 28 RF: 1 polyethylene glycol 3350 [Miralax] 17 gram powder in packet 17 g PO DAILY PRN (Reason: constipation) Qty: 5 RF: 0 oxycodone 5 mg Tablet 5 mg PO Q4H MDD 6 PRN (Reason: pain) Qty: 30 RF: 0 rivaroxaban 10 mg tablet 10 mg PO DAILY Qty: 30 RF: 0 Continued citalopram 40 mg Tablet 20 mg PO QAM RF: 0 aspirin 81 mg Tablet,Delayed Release (Dr/Ec) 81 mg PO QAM RF: 0 tamsulosin 0.4 mg Capsule 0.4 mg PO HS RF: 0 trazodone 100 mg Tablet 100 mg PO HS RF: 0 atenolol 50 mg Tablet 50 mg PO BID RF: 0 rosuvastatin [Crestor] 10 mg Tablet 10 mg PO QPM RF: 0 multivitamin Tablet 1 tab PO QAM RF: 0 Vitamin D3 1 dose PO QAM RF: 0 folic acid 1 dose PO QAM RF: 0 melatonin 1 dose PO HS RF: 0 Discontinued clopidogrel [Plavix] 75 mg Tablet 75 mg PO Q OTHER DAY RF: 0 Fish Oil 1 cap PO QAM RF: 0 Discharge Orders: Discharge Order (Routine); Ordered 04/02/21 Ordered By: Christian Whitfield/Other Patient Handouts: Controlling High Blood Pressure Admission Data Admit Date/Time: 03/31/21 15:28 Attending Provider: Ton Huynh Admit Provider: Ton Huynh Primary Care Provider: Gardenia Kearns Other Providers: Juan Carlos Camilo Other Interventions: Discharge Summary Assessment (RN) Last Done: 04/02/21 09:41
== END 2021-04-02 15:19 | disposition home or self-care (01) ==
LOC: PACUINP 10:13 → ASU 10:13 → 3N 17:55